=== PATIENT | male | born 1970 | race Caucasian/White ===

== ENCOUNTER → 2020-12-04 12:43 | Outpatient (CLI) | payer OTHER, SELFPAY ==
--- NOTE | ~2020-12-04 | XR_ITS ---
XR finger 5th RT min 2V DATE: 12/04/2020 13:22 INDICATION: Inversion injury right hand TECHNIQUE: 3 views COMPARISON: None FINDINGS: Transverse fracture of the proximal shaft of the proximal phalanx of the fifth digit with a pproximately one cortical width anterior displacement and approximately 14 degrees apex anterior angu lation. No other fracture or dislocation. IMPRESSION: Fracture of proximal shaft of proximal phalanx Reviewed, dictated and finalized at location A. TIAN BLIND WORKER
--- NOTE | ~2020-12-04 | XR_ITS ---
XR hand RT min 3V DATE: 12/04/2020 13:22 INDICATION: Compression injury of right hand last evening TECHNIQUE: 3 views COMPARISON: None FINDINGS: There is a transverse fracture through the proximal shaft of the proximal phalanx of the fi fth digit, with mild volar displacement and approximately 40 degrees apex anterior angulation. No other recent fracture or dislocation. IMPRESSION: Fracture of proximal phalanx of fifth digit Reviewed, dictated and finalized at location A. TAKER
== END ==
PROVIDERS: PCP Family Medicine Adolescent Medicine; Visit Provider Specialist
DX: S62.646A Nondisplaced fracture of proximal phalanx of right little finger, initial encounter for closed fracture (principal)
CPT/HCPCS: 73130; 73140

== ENCOUNTER 2020-12-05 13:50 | Outpatient (NON) | payer OTHER, SELFPAY | END 2020-12-05 13:51 | PROVIDERS: PCP Family Medicine Adolescent Medicine; Visit Provider Specialist | DX: L82.1 Other seborrheic keratosis (principal) | CPT/HCPCS: 88305 ==

== ENCOUNTER → 2020-12-06 14:08 | Outpatient (CLI) | payer OTHER, SELFPAY ==
--- NOTE | ~2020-12-06 | XR_ITS ---
XR hand RT 2V DATE: 12/06/2020 14:25 INDICATION: 5th finger fracture TECHNIQUE: 4 views COMPARISON: 12/04/2020 right hand FINDINGS: There is a volar splint. There is a transverse fracture at the proximal shaft of the proximal phalanx of the fifth digit. There is no significant displacement and approximately 30 degrees apex volar angulation. IMPRESSION: Splinted fracture of fifth digit; little interval change in position or alignment Reviewed, dictated and finalized at location A. GALVANIZER IMPRESSION: Splinted fracture of fifth digit; little interval change in positio n or alignment
== END ==
PROVIDERS: PCP Family Medicine Adolescent Medicine; Visit Provider Specialist
DX: S62.606D Fracture of unspecified phalanx of right little finger, subsequent encounter for fracture with routine healing (principal); X58.XXXD Exposure to other specified factors, subsequent encounter
CPT/HCPCS: 73120

== ENCOUNTER → 2020-12-08 00:52 | Outpatient (CLI) | payer OTHER, SELFPAY ==
[2020-12-08 20:39] LABS: SARS-CoV-2 RNA PCR Negative
== END ==
PROVIDERS: PCP Family Medicine Adolescent Medicine; Visit Provider Plastic Surgery
DX: Z01.812 Encounter for preprocedural laboratory examination (principal); Z20.822 Contact with and (suspected) exposure to COVID-19
CPT/HCPCS: C9803; U0003; U0005

== ENCOUNTER 2020-12-12 00:54 | Day surgery (SDC) | payer OTHER, SELFPAY ==
[2020-12-10 10:46] VITALS: BMI 24.0
--- NOTE | 2020-12-11 12:22 | P.PNAN_ITS ---
Anes - Initial Pre Proc Eval Procedure: Operation Date: 12/12/20 08:30 Proposed Procedures p Closed, Possible Open Reduction, Possible Internal Fixation Right Small Finger Proximal Phalanx - Herbie Cid MD Date/Time: 12/11/20 12:22 Surgeon: Herbie Cid MD Pre Op Diagnosis: Rt small finger fx Patient Data Age: 50 Gender: M Height: 1.74 m Weight: 73 kg Allergies Allergy/AdvReac Type Severity Reaction Status Date / Time No Known Allergies Allergy Unverified 12/12/20 06:58 Home Medications Medication Instructions Recorded Confirmed Type alprazolam 1 mg PO HS 12/10/20 12/12/20 History amitriptyline 100 mg PO HS 12/10/20 12/12/20 History hydrocodone-acetaminophen 1 tablet PO Q6-8H PRN 12/10/20 12/12/20 History omeprazole 20 mg PO HS 12/10/20 12/12/20 History rizatriptan 10 mg PO BID PRN 12/10/20 12/12/20 History Patient hx anesthesia problems: none Family hx anesthesia problems: none [facility] Past Medical History Medical History (Updated 12/11/20 @ 12:22 by Kurt Duque MD) Chronic GERD Social History Social History Tobacco type: cigars Additional smoking assessment comments: ~1 CIGAR/WEEK X 25 YEARS Alcohol intake: current Drinks per week: 2 Substance use: never Living arrangements: with family Spiritual care concerns: No Anes - Eval Final PreProcedure Day of Procedure 12/11/20 12:22 Patient weight: normal Heart: regular rate and rhythm Lungs: clear to auscultation and normal air movement Airway: Mallampati scale class II Neurological: alert and oriented Last oral intake: >/= 8 hours ASA classification: II Emergent: no Anesthetic plan: proceed Anesthesia type and monitoring: general GIVS and LMA Informed Consent: The patient's anesthetic plan and its attendant risks and benefits were discussed with the patient/family/POA. Questions were solicited and answers provided to the satisfaction of the patient/family/POA.
--- NOTE | ~2020-12-12 | XR_ITS ---
XR surgery orthopedic 12/12/2020 09:50 Indication: Right fifth proximal phalangeal fracture Procedure: 4 fluoroscopic views right fifth finger Comparison: 12/06/2020 Findings: Status post internal fixation of right fifth proximal phalangeal fracture with 2 pins. Frac ture fragments in anatomic alignment post reduction. Impression: 1: Anatomic alignment of transverse fracture right fifth proximal phalanx transfixed by 2 pins. Reviewed, dictated and finalized at location B. MBLER INSULATOR Impression: 1: Anatomic alignment of transverse fracture right fifth proximal phalanx trans fixed by 2 pins.
[2020-12-12 06:57] VITALS: BP 115/99; PULSE 80; RESP 16; TEMP 36.4; O2SAT 98
[2020-12-12] MEDS: LACTATED RINGERS 1,000 ML 30 ML IV CONT (07:10)
--- NOTE | 2020-12-12 07:11 | WPDHPUPDATE1 ---
History and Physical Update Update Date/Time: 12/12/20 07:11 History and Physical has been reviewed, including an updated exam of the patient. There are NO changes in the patient's condition. Risks, benefits, and alternatives have been discussed and questions answered. Patient agrees to proceed with procedure.
[2020-12-12] MEDS: ceFAZolin 2 GM/D5W 50 ML 2 GM/50 ML BAG IVPB (08:26)
[2020-12-12] MEDS: LIDO 1%/EPINEPHRINE 1:100,000 50 ML VIAL INFILTRATE (08:48)
[2020-12-12] MEDS: BUPIVACAINE HCL 0.5% PF 30 ML VIAL INFILTRATE (09:44)
[2020-12-12 09:48] VITALS: BP 112/90; PULSE 79; RESP 16; O2SAT 98
[2020-12-12 10:05] VITALS: BP 120/87; PULSE 71; RESP 16
--- NOTE | 2020-12-12 10:14 | PM.OP ---
Procedure Note - Brief Procedure Note - Brief Date of procedure: 12/12/20 Pre-op diagnosis: Rt small finger fx Post-op diagnosis: same Procedure performed: ORIF of right fifth finger proximal phalanx Anesthesia: MAC Surgeon: Herbie Cid MD Vacuum Metalizing Supervisor: Anastasiia Estimated blood loss (mL): 3 Tourniquet time (min): 31 Drains: No Packing: No Pathology: none sent Complications: No immediate complications Condition: stable Disposition: same day
[2020-12-12 10:25] VITALS: BP 136/89; PULSE 61; RESP 16
--- NOTE | 2020-12-12 18:42 | PM.PROC ---
Procedure Note - Detailed Date of procedure: 12/13/20 Pre-op diagnosis: Rt small finger fx Post-op diagnosis: other (Closed displaced fracture of the right 5th finger proximal phalanx.) Procedure performed: Open reduction and internal C-wire fixation of the displaced fracture of the proximal phalanx of the right 5th finger Description of procedure: the patient's right small finger was marked in the holding area. The patient was taken to the operating room where he is placed supine on the operating table. A time-out was held and confirmed. He was given IV sedation and the right upper extremity was prepped and draped in the usual fashion. The digit was blocked with 1 % Lidocaine with epinephrine. 2 g of Ancef had been infused intravenously preop. An attempt was made to perform a closed reduction of this proximal phalanx fracture. This was unsuccessful. The tourniquet was inflated to 250 mmHg. A dorsal midline incision was made from metacarpophalangeal the proximal interphalangeal joint. The rent was identified in the tendon where the fracture had penetrated. The tendon was divided through that longitudinally. The fracture was examined. With flexion of the metacarpophalangeal and proximal interphalangeal joints I was able to adequately reduce this fracture to anatomic position. A 0.045 inch C wire was driven from the ulnar fossa at the head of the distal phalanx across the fracture to the radial base. Images revealed excellent reduction and satisfactory fixation. The 2nd pin was a 0.035 in C wire driven from the ulnar base of the proximal phalanx across the fracture and exited at in the radial head of the proximal phalanx. That pin was passed through and through and the proximal tip placed at the intraosseous base of the proximal phalanx. The fixation was stable. Images were made on the C-arm. The metacarpophalangeal joint was mobile passively. The patient was awakened and eventually we were able to demonstrate flexion and extension of the proximal interphalangeal joint as well. That was improved by incising the extensor apparatus immediately distal and proximal to the pin penetration. Jergens balls were applied to both pins. The periosteum was repaired with 4-0 Prolene the extensor tendon was repaired with 4-0 Prolene the skin was closed with a running 5 0 nylon. A bulky bandage was applied no splint the digit was blocked with 0.5% Marcaine and the patient was discharged from the operating room stable condition. The tourniquet been released prior to termination of the case to improve the patient's ability to flex and extend. This patient has hydrocodone 10/325 available at his home for other reasons. Surgeon: Herbie Cid MD
== END 2020-12-12 10:40 | disposition home or self-care (01) ==
PROVIDERS: PCP Family Medicine Adolescent Medicine; Visit Provider Plastic Surgery
PROC: (CPT 26735; principal; 2020-12-12 08:30)
DX: S62.616A Displaced fracture of proximal phalanx of right little finger, initial encounter for closed fracture (principal); K21.9 Gastro-esophageal reflux disease without esophagitis; Z72.0 Tobacco use; X58.XXXA Exposure to other specified factors, initial encounter
CPT/HCPCS: 26735; A9270; C1713; C9803; J0690; J2250; J2704; J3010; J7120; U0003; U0005

== ENCOUNTER 2021-01-01 08:40 | Outpatient (CLI) | payer OTHER, SELFPAY ==
--- NOTE | ~2021-01-01 | XR_ITS ---
EXAMINATION: XR finger 5th RT min 2V DATE: 01/01/2021 08:59 INDICATION: Fracture at the fifth proximal phalanx post pin removal. TECHNIQUE: Dorsal palmar, lateral and 2 oblique views of the right fifth digit were obtained COMPARISON: Radiograph dated 12/06/2020 and 12/04/2020 FINDINGS: Again seen is and extra-articular fracture across the proximal metadiaphyseal region of the right fif th proximal phalanx which is now in near-anatomic alignment. There is a small amount of periosteal re action consistent with interval healing but which does not yet appear solidly bridging. There is stil l some residual lucency along the fracture plane. Thin oblique linear lucency is seen across the diap hysis likely representing the residual tract from the reported removed fixation pin. Soft tissue swel ling centered around the proximal phalanx of the fifth digit. No other fractures identified. There ap pears to be joint space narrowing at the fifth proximal interphalangeal joint which is new since the prior study and which does raise some concern for septic arthritis. IMPRESSION: 1. Healing extra articular fracture at the fifth proximal phalanx which is in near-anatomic alignment . 2. Joint space narrowing at the fifth proximal interphalangeal joint which appears new since the prio r radiographs raising concern for septic arthritis. Dr. Puri discussed these findings with Dr. Delcid at 11:30 AM. Reviewed, dictated and finalized at location B. LOPMENT INTERN IMPRESSION: 1. Healing extra articular fracture at the fifth proximal phalanx which is in n ear-anatomic alignment. 2. Joint space narrowing at the fifth proximal interphalangeal joint which appe ars new since the prior radiographs raising concern for septic arthritis. Dr. Bc baires discussed these findings with Dr. Cid at 11:30 AM.
== END 2021-01-01 08:41 | disposition home or self-care (01) ==
LOC: ANHIMG 08:46
PROVIDERS: PCP Family Medicine Adolescent Medicine; Visit Provider Plastic Surgery
DX: S62.646D Nondisplaced fracture of proximal phalanx of right little finger, subsequent encounter for fracture with routine healing (principal); X58.XXXD Exposure to other specified factors, subsequent encounter
CPT/HCPCS: 73140

== ENCOUNTER 2021-01-08 08:15 | Outpatient (CLI) | payer OTHER, SELFPAY ==
--- NOTE | ~2021-01-08 | XR_ITS ---
EXAMINATION: XR finger 5th RT min 2V EXAM DATE: 01/08/2021 08:26 INDICATION: osteomyelitis @ pin site . TECHNIQUE: Left 5th finger. frontal, lateral and oblique projections obtained and reviewed. Comparis on is made to prior examination from 01/01/2021, 12/06/2020, 12/04/2020. FINDINGS: There is subacute fracture at the shaft of the right 5th proximal phalanx with indistinct f racture margin, likely early routine healing. Irregular appearing periosteal reaction. There is also periarticular osteopenia at the proximal interphalangeal joint, and suspect some loss of this joint s pace. There is extensive swelling over this digit which should have subsided from posttraumatic etiol ogy last month. Findings are suspicious for proximal interphalangeal septic arthritis, osteomyelitis. IMPRESSION: 1. Right 5th proximal phalangeal subacute fracture, near anatomic alignment unchanged. 2. Findings suspicious for PIP septic arthritis and proximal phalanx osteomyelitis. 3. Soft tissue swelling. Reviewed, dictated and finalized at location B. LIANCE QUALITY PERFORMANCE ANALYST IMPRESSION: 1. Right 5th proximal phalangeal subacute fracture, near anatomic alignment un changed. 2. Findings suspicious for PIP septic arthritis and proximal phalanx osteomyel itis. 3. Soft tissue swelling.
== END 2021-01-08 08:16 | disposition home or self-care (01) ==
LOC: ANHIMG 08:19
PROVIDERS: PCP Family Medicine Adolescent Medicine; Visit Provider Plastic Surgery
DX: S62.616D Displaced fracture of proximal phalanx of right little finger, subsequent encounter for fracture with routine healing (principal); X58.XXXD Exposure to other specified factors, subsequent encounter; M79.89 Other specified soft tissue disorders
CPT/HCPCS: 73140

== ENCOUNTER 2021-01-31 09:48 | Outpatient (CLI) | payer OTHER, SELFPAY ==
--- NOTE | ~2021-01-31 | XR_ITS ---
EXAMINATION: XR finger 5th RT min 2V DATE: 01/31/2021 10:09 INDICATION: Fracture of the right fifth proximal phalanx TECHNIQUE: Dorsal palmar, lateral and 2 oblique views of the right fifth digit were obtained COMPARISON: 01/08/2021 and 01/01/2021 FINDINGS: There is approximately 10 degree dorsal angulation at a nondisplaced transverse metadiaphyseal fractu re at the proximal aspect of the right fifth proximal phalanx. There is mild increase in a small amou nt of periosteal reaction about the fracture but which does not yet appear solidly bridging. There is some increasing sclerosis along the margins of the still discernible lucent fracture plane. Again se en is an oblique lucent pin tract extending across the mid to distal portion of the proximal phalanx. Unchanged moderate joint space narrowing at the proximal interphalangeal joint which is new since 12/06/2020 consistent with septic arthritis. No evident focal osteolysis to suggest osteomyelitis. Additi onal unchanged mild osteoarthritis at the distal interphalangeal joint. IMPRESSION: 1. Interval increase in still nonbridging periosteal reaction about a nondisplaced extra articular fr acture at the proximal metadiaphyseal region of the right fifth proximal phalanx. 2. Unchanged recent joint space narrowing at the third proximal interphalangeal joint suspicious for septic arthritis. Reviewed, dictated and finalized at location A. IMPRESSION: 1. Interval increase in still nonbridging periosteal reaction about a nondispla kiki extra articular fracture at the proximal metadiaphyseal region of the right fifth proximal phalanx. 2. Unchanged recent joint space narrowing at the third proximal interphalangeal joint suspicious for septic arthritis.
== END 2021-01-31 09:49 | disposition home or self-care (01) ==
LOC: ANHIMG 09:54
PROVIDERS: PCP Family Medicine Adolescent Medicine; Visit Provider Plastic Surgery
DX: S62.616D Displaced fracture of proximal phalanx of right little finger, subsequent encounter for fracture with routine healing (principal); X58.XXXD Exposure to other specified factors, subsequent encounter
CPT/HCPCS: 73140

== ENCOUNTER 2021-02-15 06:44 | Outpatient (CLI) | payer OTHER, SELFPAY ==
--- NOTE | ~2021-02-15 | MR_ITS ---
EXAMINATION: MR knee RT wo con DATE: 02/15/2021 07:55 INDICATION: Right knee pain. TECHNIQUE: Magnetic resonance imaging (MRI) of the right knee was performed without intravenous contr ast. Sequences included axial PD-weighted FS FSE, coronal PD-weighted FSE and PD-weighted FS FSE, sag ittal PD-weighted FSE, sagittal T2-weighted FS FSE, and axial, coronal, and sagittal STIR FSE. COMPARISON: Right knee radiographs 02/07/2021 FINDINGS: Medial compartment: There is a complex tear of body and posterior horn of medial meniscus. There is a small area of deep partial thickness cartilage loss of femoral condyle involving the medial articular surface. Tibial ca rtilage is normal. Osteophytes are noted. Lateral compartment: There is a complex tear involving the body and anterior horn of lateral meniscus. There is deep parti al thickness cartilage loss of tibial condyle involving the posterior articular surface. There is pascual p partial thickness cartilage loss of femoral condyle involving the central and medial articular surf gardenia. Osteophytes are noted. Patellofemoral compartment: There is shallow partial-thickness cartilage loss of patellar median ridge and lateral facet. There i s cartilage surface irregularity of trochlea. Osteophytes are noted. Ligaments and tendons: There are changes of anterior cruciate ligament reconstruction, which is intact. Posterior cruciate l igament is intact. There are changes of prior sprains of medial collateral ligament and fibular colla teral ligament characterized by thickening and increased signal intensity proximally. There is mild p atellar tendinopathy. Fluid: There is a small knee joint effusion. There is a small Lawson's cyst. There is mild superficial infrap atellar bursitis. IMPRESSION: 1. Moderate chondrosis of lateral compartment and mild chondrosis of medial and patellofemoral compar tments. 2. Complex tears of medial and lateral menisci. 3. Intact anterior cruciate ligament reconstruction. 4. Small knee joint effusion. 5. Small Lawson's cyst. Reviewed, dictated and finalized at location A. IMPRESSION: 1. Moderate chondrosis of lateral compartment and mild chondrosis of medial and patellofemoral compartments. 2. Complex tears of medial and lateral menisci. 3. Intact anterior cruciate ligament reconstruction. 4. Small knee joint effusion. 5. Small Lawson's cyst.
== END 2021-02-15 06:45 | disposition home or self-care (01) ==
PROVIDERS: PCP Family Medicine Adolescent Medicine; Visit Provider Orthopaedic Surgery
DX: M25.461 Effusion, right knee (principal); S83.271A Complex tear of lateral meniscus, current injury, right knee, initial encounter; S83.231A Complex tear of medial meniscus, current injury, right knee, initial encounter; X58.XXXA Exposure to other specified factors, initial encounter
CPT/HCPCS: 73721

== ENCOUNTER 2021-02-21 07:56 | Outpatient (CLI) | payer OTHER, SELFPAY ==
--- NOTE | ~2021-02-21 | XR_ITS ---
XR finger 5th RT min 2V DATE: 02/21/2021 08:11 INDICATION: Fifth digit fracture follow-up TECHNIQUE: 3 views COMPARISON: 01/31/2021 right fifth digit FINDINGS: There is no change in position or alignment of the previously reported proximal phalangeal metadiaphyseal fracture. There is organized periosteal reaction consistent with healing. IMPRESSION: Healing proximal phalangeal fracture without change in position or alignment since 02/01/20 21 Reviewed, dictated and finalized at location A. IMPRESSION: Healing proximal phalangeal fracture without change in position or alignment since 01/31/2021
== END 2021-02-21 07:57 | disposition home or self-care (01) ==
PROVIDERS: PCP Family Medicine Adolescent Medicine; Visit Provider Plastic Surgery
DX: S62.616D Displaced fracture of proximal phalanx of right little finger, subsequent encounter for fracture with routine healing (principal); X58.XXXD Exposure to other specified factors, subsequent encounter
CPT/HCPCS: 73140

== ENCOUNTER 2021-03-29 07:30 | Outpatient (RCR) | payer OTHER, SELFPAY ==
--- NOTE | 2021-01-03 15:31 | OTOPEVAL ---
OCCUPATIONAL THERAPY EVALUATION REPORT 01/03/21 Thank you for referring Neo Gates to [facility].? The patient is scheduled to be seen for occupational therapy? 1x/week for 5 weeks. Please review, sign, date and return this plan of care BAYRON. I agree with and certify that the following plan of care is medically necessary. Referring Physician Date Referring Provider: Herbie Cid MD *OT Outpatient Evaluation Start: 01/03/21 14:35 Therapy Assessment Status Assessment Status Assessment Status Evaluation Outpatient Past Medical History Past Medical History Source of Past Medical History Recalled from Previous Visit, Confirmed with Patient/Family Neurological History Hx Migraine Yes Cardiovascular History Hx Cardiac Disorders No Significant History Respiratory History Hx Respiratory Disorders No Significant History Gastrointestinal History Hx Gastroesophageal Reflux Disease Yes Genitourinary History Hx Genitourinary Disorders No Significant History Musculoskeletal History Hx Fractures Yes: RT SMALL FINGER FRACTURE 12/03/20 Hx Orthopedic Surgery Yes: S/P RT ACL REPAIR WITH SCREW Hematological History Hx Hematological Disorders No Significant History Endocrine History Hx Endocrine Disorders No Significant History HEENT History Hx HEENT Disorders No Significant History Integumentary History Hx Skin Disorders No Significant History Reproductive History Hx Other Reproductive Disorders Yes: VASECTOMY Psychosocial History Hx Psychiatric Disorders No Significant History Pain History Has Past Pain Affected Your Daily Life Yes: MIGRAINES Anesthesia History Hx Anesthesia Reactions No Significant History Other History Hx Implanted Device Yes: SCREW RT KNEE Evaluation Information Problem Diagnosis ORIF right small finger proximal phalanx Onset 12/12/20 Additional Evaluation Detail Pin removal 12/31/20 Subjective Information Neo reports the proximal Query Text:As Reported By Patient/ phalanx on his right small Family finger was smashed while changing a tire. He was immobilized with two C-wires for about 3 weeks. The pins were removed a few days early due to infection. He is currently taking antibiotics. 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
--- NOTE | 2021-02-06 08:25 | OTOPEVAL ---
OCCUPATIONAL THERAPY RE-EVALUATION REPORT 02/06/21 Patient presents for OT re-evaluation following 5 weeks of OT for right small finger ROM after fracture, ORIF, and subsequent pin removal. Healing and progress have been slow due to issues with infection and dx of arthritis at the PIP joint. Gains noted in active flexion at the MCP and PIP joint as well as extension at the PIP joint. HEP has progresssed from active to passive to gentle resistive today (8 weeks post op). Continued OT indicated for progression of resistive to continue to increase functional flexion of the small finger for improved use with gripping tasks for work, yard work, and ADLs. Thank you for referring Neo Gates to [facility].? The patient is scheduled to be seen for therapy? 1x/week for 3 weeks. Please review, sign, date and return this plan of care BAYRON. I agree with and certify that the following plan of care is medically necessary. Referring Physician Date Referring Provider: Herbie Cid MD *OT Outpatient Evaluation Evaluation Information Problem Diagnosis ORIF right small finger proximal phalanx Onset 12/12/20 Additional Evaluation Detail Pin removal 12/31/20 OT began 01/03/21, has had 5 sessions total Patient is compliant with all materials Subjective Information Neo reports that his pain Query Text:As Reported By Patient/ has subsided, compared to the Family initial eval where he reported constant pain. He states, I feel like I've come a long way. 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 Neo reports the proximal phalanx on his right small finger was smashed while changing a tire. He was immobilized with two C-wires for about 3 weeks. The pins were removed a few days early due to infection. He is currently taking antibiotics. Pain Assessment Timing of Pain Assessment Timing of Pain Assessment Re-assessment Pain Scale Pain Scale Used Numeric (1 - 10) Self Report Pain Assessment Right Finger, Little Reported Pain Level 0 Pain Description Soreness Lowest Pain Intensity 0 Greatest Pain Intensity 4 Other Pain Aggravating Factors Overuse, exercises Pain Score Pain Score 0: Self Report Additional Pain Score Comments Patient reports no pain at
--- NOTE | 2021-02-26 08:24 | OTOPEVAL ---
OCCUPATIONAL THERAPY RE-EVALUATION REPORT 02/26/21 Thank you for referring Neo Gates to [facility].? The patient is scheduled to be seen for continued occupational therapy? 1x/week for 4 weeks. Please review, sign, date and return this plan of care BAYRON. I agree with and certify that the following plan of care is medically necessary. Referring Physician Date Referring Provider: Herbie Cid MD *OT Outpatient Evaluation Start: 01/03/21 14:35 Evaluation Information Problem Diagnosis ORIF right small finger proximal phalanx Onset 12/12/20 Additional Evaluation Detail Pin removal 12/31/20 OT began 01/03/21, has had 8 sessions total Patient is compliant with all materials Subjective Information Neo reports that his finger Query Text:As Reported By Patient/ has improved, but notes that Family any time he uses his hand it tends to swell and become painful. He reports that he has no restrictions per his recent follow up with MD. He reports that his exercises and heavy hand use causes severe pain and he has to stop what he's doing, rating his pain at 5-6/10. Pain Assessment Timing of Pain Assessment Timing of Pain Assessment Re-assessment Pain Scale Pain Scale Used Numeric (1 - 10) Self Report Pain Assessment Right Finger, Little Reported Pain Level 2 Pain Description Sharp Lowest Pain Intensity 1 Greatest Pain Intensity 7 Pain Score Pain Score 2: Self Report Additional Pain Score Comments Patient states he tried to use a hammer 3 days ago and this caused severe, sharp pain. He states his swelling has not subsided from this. Interventions Used Interventions Used By Clinicians Ultrasound Upper Extremity Range of Motion Finger Range of Motion Right Little Finger MCP Joint Flexion - Active 90 Little Finger PIP Joint Flexion - Active 80 Little Finger PIP Joint Extension - -30 Active Little Finger DIP Joint Flexion - Active 35 Little Finger DIP Joint Flexion - 45 Passive Finger Range of Motion Comments Composite flexion: tip to palm has 2.0 cm gap (improved from 2.5 cm); tip to DPC has 2.0 cm gap (improved from 3.0cm).
--- NOTE | 2021-03-29 08:03 | OTOPEVAL ---
OCCUPATIONAL THERAPY RE-EVALUATION AND D/C SUMMARY 03/29/21 Patient presents today for OT re-evaluation following 12 weeks of OT for right small finger ROM and hand strengthening s/p proximal phalanx fracture, ORIF, and pin removal. Neo has made excellent progress with functional ROM and strength of the right hand. He has improved to having only 25* extension lag at the PIP joint actively and 10* passively. Gross flexion improved to functional limits, measuring only 1.0 cm gap between tip and palm. He is currently independent with all splints and exercises to continue to to work on ROM and strengthening. Discharging at this time with [facility]. Thank you for referring Neo Gates to [facility]. Please review, sign, date and return this D/C Summary [place]. I agree with and certify that the following plan of care is medically necessary. Referring Physician Date Referring Provider: Herbie Cid MD *OT Outpatient Re-Evaluation Start: 01/03/21 14:35 Evaluation Information Problem Diagnosis ORIF right small finger proximal phalanx Onset 12/12/20 Additional Evaluation Detail Pin removal 12/31/20. OT began 01/03/21, has had 12 sessions total. Patient is compliant with all materials. Subjective Information Neo reports that his hand Query Text:As Reported By Patient/ tends to feel sore and painful Family after use. He notes some residual swelling in the PIP joint. At the last reassess, he reported that his exercises and heavy hand use causes severe pain and he has to stop what he's doing, rating his pain at 5-6/10. Today he reports that the pain is more like 2-3/10 and he no longer has to stop or take breaks during heavy hand use. He reports no functional limitations. Pain Assessment Timing of Pain Assessment Timing of Pain Assessment Re-assessment Pain Scale Pain Scale Used Numeric (1 - 10) Self Report Pain Assessment Right Finger, Little Reported Pain Level 0 Lowest Pain Intensity 0 Greatest Pain Intensity 3 Pain Score Pain Score 0: Self Report Upper Extremity Range of Motion Finger Range of Motion Right Little Finger MCP Joint Flexion - Active 90 Little Finger PIP Joint Flexion - Active 85 Little Finger PIP Joint Extension - -25 Active Little Finger PIP Joint Extension - -10 Passive Little Finger DIP Joint Flexion - Active 40 Little Finger Tip to Base of Palm -
== END 2021-04-02 09:06 | disposition home or self-care (01) ==
LOC: ANHOT 07:30
PROVIDERS: PCP Family Medicine Adolescent Medicine; Visit Provider Plastic Surgery
DX: Z48.89 Encounter for other specified surgical aftercare (principal)
CPT/HCPCS: 97018; 97035; 97110; 97140; 97165; 97760

== ENCOUNTER → 2022-05-02 03:03 | Outpatient (CLI) | payer OTHER, SELFPAY ==
[2022-05-02 11:53] LABS: SARS-CoV-2 RNA PCR Positive
== END ==
PROVIDERS: PCP Family Medicine Adolescent Medicine
DX: U07.1 COVID-19 (principal)
CPT/HCPCS: C9803; U0003; U0005

== ENCOUNTER 2022-06-25 09:06 | Outpatient (CLI) | payer OTHER, SELFPAY ==
--- NOTE | ~2022-06-25 | XR_ITS ---
EXAMINATION: XR wrist RT 2V INDICATION: Right wrist pain TECHNIQUE: Two views of the right wrist are obtained. COMPARISON: 02/21/2021 FINDINGS: No acute fracture is identified. There appears to be an old ulnar styloid avulsion with non union. The joint spaces are normal. The soft tissues are unremarkable. IMPRESSION: 1. No acute osseous abnormality. Reviewed, dictated and finalized at location B.
== END 2022-06-25 09:07 | disposition home or self-care (01) ==
LOC: ANHASCIMG 09:10
PROVIDERS: PCP Family Medicine Adolescent Medicine; Visit Provider Family Medicine Adolescent Medicine
DX: M25.531 Pain in right wrist (principal)
CPT/HCPCS: 73100

== ENCOUNTER 2022-11-27 01:37 | Day surgery (SDC) | payer OTHER, SELFPAY ==
[2022-11-20 10:42] VITALS: BMI 25.9
[2022-11-27 08:15] VITALS: BP 137/96; PULSE 79; RESP 20; TEMP 36.5; O2SAT 98; BMI 26.6
[2022-11-27] MEDS: LACTATED RINGERS 1,000 ML 150 ML IV CONT (08:21)
--- NOTE | 2022-11-27 09:09 | WPDANESEPPF ---
Anes - Initial Pre Proc Eval Procedure: Operation Date: 11/27/22 09:15 Proposed Procedures p Esophagogastroduodenoscopy - Jermaine Mena DO Date/Time: 11/27/22 09:09 Surgeon: Jermaine Mena DO Pre Op Diagnosis: GERD Patient Data Age: 52 Gender: M Height: 1.73 m Weight: 79.5 kg Last Vital Signs Temp 97.7 F 11/27/22 08:15 Pulse 79 11/27/22 08:15 Resp 20 11/27/22 08:15 BP 137/96 H 11/27/22 08:15 Pulse Ox 98 11/27/22 08:15 O2 Del Method Room Air 11/27/22 08:15 Allergies Allergy/AdvReac Type Severity Reaction Status Date / Time No Known Allergies Allergy Verified 11/27/22 08:14 Home Medications Medication Instructions Recorded Confirmed Type rizatriptan 10 mg disintegrating See Rx Instructions .Route 10/29/21 11/20/22 Rx tablet .COMPLEX #4 tabs amitriptyline 100 mg tablet See Rx Instructions .Route 08/18/22 11/20/22 Rx .COMPLEX #30 tabs alprazolam 1 mg tablet 1 mg PO HS #30 tabs 09/16/22 11/20/22 Rx diclofenac sodium 75 mg 75 mg PO BID #60 tabs 09/16/22 11/20/22 Rx tablet,delayed release omeprazole 20 mg capsule,delayed 20 mg PO DAILY #30 caps 11/06/22 11/20/22 Rx release Patient hx anesthesia problems: none Family hx anesthesia problems: none Results Review: All pre-operative results and documents have been reviewed as part of the pre-operative evaluation. [facility] Past Medical History Medical History (Updated 10/31/22 @ 08:31 by Mimi Webb) Arthritis Chronic GERD Essential (primary) hypertension Surgical History Surgical History History of right knee surgery ACL - Carlos Family History Family History Father Heart disease Social History Social History Social History: cigar once in a while Smoking status: Light tobacco smoker Tobacco type: cigars Additional smoking assessment comments: OCCASIONAL CIGAR Alcohol intake: current Drinks per week: 3 Substance use: current Substance use type: marijuana Other substance usage details: occasional use Living arrangements: with family Occupation/Education: occupation Gender identity (if verbalized by the patient): Male Spiritual care concerns: No Anes - Eval Final PreProcedure Day of Procedure 11/27/22 09:09 Patient weight: normal Heart: regular rate and rhythm Lungs: clear to auscultation Airway: Mallampati scale class II Neurological: alert and oriented Last oral intake: >/= 8 hours ASA classification: II Emergent: no Anesthetic plan: proceed Anesthesia type and monitoring: general GIVS and standard monitoring Results Review: All pre-operative results and documents have been reviewed as part of the pre-operative evaluation. Informed Consent: The patient's anesthetic plan and its attendant risks and benefits were discussed with the patient/family/POA. Questions were solicited and answers provided to the satisfaction of the patient/family/POA.
--- NOTE | 2022-11-27 09:23 | PM.IMHP ---
H&P: HPI History of Present Illness Date/Time: 11/27/22 09:23 Chief Complaint: GERD Narrative: this is a 52-year-old man who presents with worsening acid reflux symptoms. He has a prior history acid reflux and hiatal hernia. He has been on omeprazole, but has been having some worsening symptoms despite staying on this medication. He has tried anti reflux measures but is still having some occasional symptoms. Review of Systems Review of Systems: All systems reviewed & are unremarkable except as noted in HPI and below Constitutional: Constitutional: Denies chills, Denies fever(s), Denies headache(s) and Denies weight loss Eyes: Eyes: Denies change in vision ENT: Denies dizziness, Denies headache(s), Denies neck mass and Denies throat swelling Cardiovascular: Cardiovascular: Denies chest pain, Denies lightheadedness and Denies dyspnea Respiratory: Respiratory: Denies cough, Denies dyspnea and Denies wheezing Gastrointestinal: Gastrointestinal: Denies abdominal pain, Denies change in bowel habits, Denies nausea and Denies vomiting Genitourinary: Genitourinary: Denies hematuria and Denies dysuria Musculoskeletal: Musculoskeletal: Reports as per HPI Integumentary/Breasts: Skin/Breast: Reports as per HPI Neurologic: Denies dizziness and Denies headache(s) Allergic/Immunologic: Allergic/Immunologic: Denies throat swelling and Denies wheezing [facility] Past Medical History Medical History (Updated 11/27/22 @ 09:24 by Jermaine Mena DO) Arthritis Chronic GERD Essential (primary) hypertension Surgical History Surgical History History of right knee surgery ACL - Carlos Family History Family History Father Heart disease Social History Social History Social History: cigar once in a while Smoking status: Light tobacco smoker Tobacco type: cigars Additional smoking assessment comments: OCCASIONAL CIGAR Alcohol intake: current Drinks per week: 3 Substance use: current Substance use type: marijuana Other substance usage details: occasional use Living arrangements: with family Occupation/Education: occupation Gender identity (if verbalized by the patient): Male Spiritual care concerns: No Meds Home Medications and Allergies Home Medications Medication Instructions Recorded Confirmed Type rizatriptan 10 mg disintegrating See Rx Instructions .Route 10/29/21 11/20/22 Rx tablet .COMPLEX #4 tabs amitriptyline 100 mg tablet See Rx Instructions .Route 08/18/22 11/20/22 Rx .COMPLEX #30 tabs alprazolam 1 mg tablet 1 mg PO HS #30 tabs 09/16/22 11/20/22 Rx diclofenac sodium 75 mg 75 mg PO BID #60 tabs 09/16/22 11/20/22 Rx tablet,delayed release omeprazole 20 mg capsule,delayed 20 mg PO DAILY #30 caps 11/06/22 11/20/22 Rx release Allergies Allergy/AdvReac Type Severity Reaction Status Date / Time No Known Allergies Allergy Verified 11/27/22 08:14 Vital Signs Vital Signs - 24 hr 11/27/22 08:15 Temperature 36.5 C Pulse Rate 79 Respiratory Rate 20 Blood Pressure 137/96 H Pulse Oximetry 98 Oxygen Delivery Room Air Exam Const: General: no acute distress and alert Orientation/consciousness: patient oriented x3 HENMT: Head: normocephalic and atraumatic Ears: hearing grossly normal bilaterally Face/Nose/Sinus: Normal nares present Mouth: Yes Normal oral and palatal mucosa present Eyes: Periorbital: periorbital findings normal Sclera: sclerae normal EOM: EOMs intact bilaterally Neck: Neck: normal visual inspection, no lymphadenopathy and trachea midline Chest: Chest palpation & inspection: normal inspection of the chest Resp: Effort & Inspection: normal respiratory effort Auscultation: clear to auscultation bilaterally Cardio: Jugular venous distension: no JVD Rate: regular
[2022-11-27 09:42] VITALS: BP 112/88; PULSE 83; RESP 15; O2SAT 100
[2022-11-27 09:52] VITALS: BP 121/78; PULSE 77; RESP 15; O2SAT 98
[2022-11-27 10:02] VITALS: BP 138/89; PULSE 75; RESP 19; O2SAT 99
== END 2022-11-27 10:16 | disposition home or self-care (01) ==
PROVIDERS: PCP Family Medicine Adolescent Medicine; Visit Provider Surgery
PROC: 0DJ08ZZ Inspection of Upper Intestinal Tract, Via Natural or Artificial Opening Endoscopic (ICD-10-PCS; CPT 43235; principal; 2022-11-27 09:15)
DX: K22.10 Ulcer of esophagus without bleeding (principal); K21.00 Gastro-esophageal reflux disease with esophagitis, without bleeding; K29.00 Acute gastritis without bleeding; K44.9 Diaphragmatic hernia without obstruction or gangrene; I10 Essential (primary) hypertension; M19.90 Unspecified osteoarthritis, unspecified site; F12.90 Cannabis use, unspecified, uncomplicated; Z72.0 Tobacco use
CPT/HCPCS: 43239; 87081; 88305; J2704; J7120

== ENCOUNTER 2023-12-07 09:39 | Outpatient (CLI) | payer OTHER, SELFPAY ==
--- NOTE | ~2023-12-07 | XR_ITS ---
XR shoulder LT min 2V DATE: 12/07/2023 10:35 INDICATION: Pain and swelling in left shoulder after fall TECHNIQUE: 4 views COMPARISON: None FINDINGS: There is approximately 15 degrees dextroscoliosis of the upper thoracic spine. No fracture or dislocation, periosteal reaction or bone destruction or abnormal soft tissue calcifica tion of the left shoulder is noted. Acromioclavicular and glenohumeral joint spaces appear well prese rved. No abnormal left shoulder soft tissue calcification. IMPRESSION: No significant abnormality of left shoulder 15 degrees dextro scoliosis of upper thoracic spine Reviewed, dictated and finalized at location B. 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
== END 2023-12-07 09:40 | disposition home or self-care (01) ==
LOC: ANHASCIMG 09:41
PROVIDERS: PCP Family Medicine Adolescent Medicine; Visit Provider Family Medicine Adolescent Medicine
DX: M25.512 Pain in left shoulder (principal); M41.9 Scoliosis, unspecified
CPT/HCPCS: 73030

== ENCOUNTER 2025-06-27 14:46 | Outpatient (CLI) | payer BC, SELFPAY ==
--- NOTE | ~2025-06-27 | XR_ITS ---
EXAMINATION: XR hand RT min 3V DATE: 06/27/2025 14:53 INDICATION: Pain in right fingers TECHNIQUE: 3 images of the right hand were obtained. COMPARISON: None. FINDINGS: Bone mineralization is within normal limits. Severe joint space narrowing in the first carpometacarpal joint with adjacent soft tissue swelling. Mild joint space narrowing in the first and third metacarpophalangeal joints with adjacent soft tissue swelling. No fracture. No dislocation. Soft tissue swelling about the right hand. IMPRESSION: 1. No fracture. No dislocation. 2. Severe joint space narrowing in the first carpometacarpal joint with adjacent soft tissue swelling. 3. Mild joint space narrowing in the first and third metacarpophalangeal joints with adjacent soft tissue swelling. If symptoms persist or worsen, consider a short-term follow-up study or additional imaging for further assessment. Reviewed, dictated and finalized at location Q. IMPRESSION: 1. No fracture. No dislocation. 2. Severe joint space narrowing in the first carpometacarpal joint with adjacen t soft tissue swelling. 3. Mild joint space narrowing in the first and third metacarpophalangeal joints with adjacent soft tissue swelling. If symptoms persist or worsen, consider a short-term follow-up study or additio nal imaging for further assessment.
--- OUTSIDE RECORDS SUMMARY | 2025-06-27 14:49 | XMS_ITS | Clinical Summary ---
Author Organization [facility] Address [address], [address] [address] Phone Care Team Providers Care Ambulance Driver Paramedic Name Role Phone Valdemar Pa MD Primary Care Provider + Allergies No known active allergies Medications amitriptyline (ELAVIL) 100 MG Tablet Take 1 Tab by mouth nightly. 3 10/17/2016 Active Topiramate 50 MG Tablet Take 1 Tab by mouth daily. 5 10/17/2016 Active HYDROcodone-acet aminophen (NORCO) 10-325 MG Tablet Take 1 Tab by mouth as needed. 0 11/12/2016 Active omeprazole (PRILOSEC) 40 MG CAPSULE DELAYED RELEASE Take 40 mg by mouth daily. 6 11/12/2016 Active ibuprofen (MOTRIN) 600 MG Tablet Take 600 mg by mouth every 8 hours. Active Family History Medical History Relation Name Comments Prostate Cancer Father Relation Name Status Comments Father Social History Tobacco Use Types Packs/Day Years Used Date Smoking Tobacco: Light Smoker Cigarettes Smokeless Tobacco: Never Comments:Social Smoker Alcohol Use Standard Drinks/Week Comments Yes 0 (1 standard drink = 0.6 oz pur e alcohol) Social Sex and Gender Information Value Date Recorded Sex Assigned at Not on file Legal Sex Male 1:34 PM [employer] Gender Identity Not on file Sexual Orientation Not on file Plan of Treatment Health Maintenance Due Date Last Done Comments Hepatitis C Virus (HCV) Screening 1970 TdaP Immunization 1970 Hepatitis B Immunization (1 of 3 - 19+ 3-dose series) 1989 Cologuard 2015 Colonoscopy 2015 Colorectal Cancer Screening 2015 Immunochemical Fecal Occult Blood 2015 Pneumococcal Immunization (5 0+ years) (1 of 1 - PCV) 2020 Zoster Immunization (1 of 2) 2020 SARS-COV-2 Immunization (1 - 2023-25 season) 2024 Influenza Immunization (#1) 2025 Respiratory Syncytial Virus (RSV) Immunization (Adult) (1 - 1-dose 75+ series) 2045 Human Papillomavirus (HPV) Immunization Aged Out No longer eligible b ased on patient's age to complete this topic Meningococcal Immunization (ACWY) Aged Out No longer eligible based on patient's age to complete this topic Rotavirus Immunization Aged Out No lo nger eligible based on patient's age to complete this topic Care Teams Ambulance Driver Paramedic Relationship Specialty Start Date End Date Valdemar Pa MD PCP - General Family Medicine 11/17/16
== END 2025-06-27 14:47 | disposition home or self-care (01) ==
LOC: ANHASCIMG 14:47
PROVIDERS: PCP Family Medicine; Visit Provider Family Medicine Adolescent Medicine
DX: M79.644 Pain in right finger(s) (principal)
CPT/HCPCS: 73130